=== PATIENT | male | born 1975 ===

== ENCOUNTER 2016-08-29 21:31 | Observation (INO) | payer MEDICAID ==
[2016-08-29 21:46] VITALS: TEMP 98
[2016-08-29] MEDS ORDERED: Nitroglycerin 2% 15 INCH/30 GM TUBE TOP STA (21:54)
--- NOTE | 2016-08-29 22:18 | ED PDOC ---
HPI: Chest Pain Time Seen by Provider: 08/29/16 21:31 Chief Complaint (Nursing): Chest Pain Chief Complaint (Provider): Chest Pain History Per: Patient Onset/Duration Of Symptoms: Mins (prior to arrival) Current Symptoms Are (Timing): Still Present Additional Complaint(s): Chris Michele is a 40 year old male with previous medical history of diabetes, hypertension and hyperlipedemia, who presents to the emegency department via EMT for chest tightness associated with numbness of the left arm after use of cocaine earlier today. Denies any shortness of breath. EMT noted that his blood pressure was elevated during assessment. PMD: Ferny Katz Past Medical History Reviewed: Historical Data, Nursing Documentation, Vital Signs Vital Signs: Last Vital Signs Temp 98 F 08/29/16 21:44 Pulse 122 H 08/29/16 22:05 Resp 16 08/29/16 21:44 BP 161/106 H 08/29/16 21:44 Pulse Ox 100 08/29/16 22:23 - Medical History PMH: Diabetes, HTN, Hyperlipidemia Denies: Chronic Kidney Disease - Family History Family History: States: Unknown Family Hx - Social History Current smoker - smoking cessation education provided: Yes (<10 cigarettes/daily ) Alcohol: Occasional Drugs: Cocaine - Immunization History Hx Tetanus Toxoid Vaccination: No Hx Influenza Vaccination: No Hx Pneumococcal Vaccination: No - Home Medications Home Medications: Ambulatory Orders Medication Instructions Recorded Cyclobenzaprine [Flexeril] 10 mg PO BID 08/03/16 Insulin Aspart [Novolog] 30 unit SC BID 08/03/16 Zolpidem Tartrate [Ambien] 10 mg PO HS 08/03/16 - Allergies Allergies/Adverse Reactions: Allergies Allergy/AdvReac Type Severity Reaction Status Date / Time No Known Allergies Allergy Verified 08/03/16 23:07 Review of Systems ROS Statement: Except As Marked, All Systems Reviewed And Found Negative Cardiovascular: Positive for: Chest Pain (tightness) Respiratory: Negative for: Shortness of Breath Neurological: Positive for: Numbness (left arm) Physical Exam - Reviewed Nursing Documentation Reviewed: Yes Vital Signs Reviewed: Yes - Physical Exam Appears: Positive for: Well, Non-toxic, No Acute Distress Head Exam: Positive for: ATRAUMATIC, NORMAL INSPECTION, NORMOCEPHALIC Skin: Positive for: Normal Color, Warm, Dry Cardiovascular/Chest: Positive for: Tachycardia (with regular rate) Respiratory: Positive for: Normal Breath Sounds. Negative for: Crackles, Rales , Rhonchi, Stridor Gastrointestinal/Abdominal: Positive for: Normal Exam, Bowel Sounds, Soft. Negative for: Tenderness, Guarding, Rebound Extremity: Positive for: Normal ROM Neurologic/Psych: Positive for: Alert, nutritionist public health II-XII (intact), Oriented - Laboratory Results Result Diagrams: 08/29/16 22:06 - ECG O2 Sat by Pulse Oximetry: 100 (RA) Pulse Ox Interpretation: Normal Medical Decision Making Medical Decision Making: Initial Impression: Substernal chest tightness Initial Plan: * EKG * Labs * Drug screen * Troponin I * CXR * Aspirin 325mg PO * Nitro-BID 2% Oint * Admit to hospital Scribe Attestation: Documented by Karla Jerez, acting as a scribe for Bebo Canela MD. Provider Scribe Attestation: All medical record entries made by the Scribe were at my direction and personally dictated by me. I have reviewed the chart and agree that the record accurately reflects my personal performance of the history, physical exam, medical decision making, and the department course for this patient. I have also personally directed, reviewed, and agree with the discharge instructions and disposition. Disposition - Clinical Impression Clinical Impression: Chest pain - Patient ED Disposition Is Patient to be Admitted: Yes - Disposition Disposition Time: 22:24 Condition: FAIR - Pt Status Changed To: Hospital Disposition Of: Observation - POA Present On Arrival: None
[2016-08-29 22:20] LABS: BASO % 0.4 % (0.0-2.0); HEMATOCRIT 42.9 % (35.0-51.0); LYMPH # 1.8 K/uL (1.0-4.3); MEAN CELL VOLUME 91.4 fl (80.0-94.0); MEAN CORPUSCULAR HEMOGLOBIN 31.4 pg (27.0-31.0); MEAN CORPUSCULAR HGB CONC 34.4 g/dL (33.0-37.0); MEAN PLATELET VOLUME 9.3 fl (7.2-11.7); MONO # 0.5 K/uL (0.0-0.8); MONO % 4.8 % (0.0-10.0); NEUT # 8.7 K/uL (1.8-7.0); NEUT % 78.8 % (50.0-75.0); RED CELL DISTRIBUTION WIDTH 13.2 % (11.5-14.5); WHITE BLOOD COUNT 11.1 K/uL (4.8-10.8)
[2016-08-29 22:30] LABS: ALB/GLOB RATIO 1.3 (1.0-2.1); ALKALINE PHOSPHATASE 121 U/L (38-126); ALT/SGPT 46 U/L (21-72); AST/SGOT 43 U/L (17-59); BILIRUBIN,TOTAL 0.8 mg/dl (0.2-1.3); BLOOD UREA NITROGEN 17 mg/dl (9-20); CALCIUM 9.6 mg/dL (8.4-10.2); CARBON DIOXIDE 23 mmol/L (22-30); CHLORIDE 98 mmol/L (98-107); GFR AFRICAN-AMERICAN > 60; GLUCOSE,RANDOM 324 mg/dL (75-110); POTASSIUM 3.9 MMOL/L (3.6-5.0); SODIUM 134 mmol/l (132-148); TOTAL PROTEIN 8.4 G/DL (6.3-8.2)
[2016-08-29 23:02] VITALS: BP 133/74; PULSE 90; RESP 18; O2SAT 99
--- NOTE | 2016-08-30 10:13 | RAD ---
HISTORY: CHEST PAIN COMPARISON: Comparison chest 07/24/2010 TECHNIQUE: Chest PA and lateral FINDINGS: LUNGS: Interstitial markings are slightly increased coarsened with a few scattered peribronchial cuffing changes. Rule out sequela of reactive/inflammatory airway disease or viral illness. PLEURA: No significant pleural effusion identified. No pneumothorax apparent. CARDIOVASCULAR: Normal. OSSEOUS STRUCTURES: No significant abnormalities. VISUALIZED UPPER ABDOMEN: Normal. OTHER FINDINGS: None. IMPRESSION: Interstitial markings are slightly increased coarsened with a few scattered peribronchial cuffing changes. Rule out sequela of reactive/inflammatory airway disease or viral illness.
--- NOTE | 2016-08-31 01:17 | CARD ---
APPROVED REPORT EKG Measurement Heart [id number] <Conclusion> Sinus tachycardia Left axis deviation Pulmonary disease pattern Abnormal ECG
== END 2016-08-29 23:01 | disposition left against medical advice (07) ==
LOC: H.ER 21:31 → H.ERHOLD 21:55
PROVIDERS: ADMIT Internal Medicine; ATTEND Internal Medicine
DX: R07.89 Other chest pain (principal); I10 Essential (primary) hypertension; F14.10 Cocaine abuse, uncomplicated; E11.9 Type 2 diabetes mellitus without complications; E78.5 Hyperlipidemia, unspecified; F17.210 Nicotine dependence, cigarettes, uncomplicated; Z79.4 Long term (current) use of insulin